=== PATIENT | male | born 1985 | race Caucasian/White ===

== ENCOUNTER → 2016-07-01 06:35 | Day surgery (SDC) | payer OTHER ==
--- NOTE | 2016-06-27 19:01 | HP ---
PREOPERATIVE HISTORY AND PHYSICAL: DATE OF OFFICE VISIT: 06/27/16 DATE OF SURGERY: 07/01/16 [facility] ATTENDING SURGEON: Malina Ram MD. PROCEDURE: Left knee arthroscopic anterior cruciate ligament reconstruction. CHIEF COMPLAINT: Left knee pain and instability. HISTORY OF PRESENT ILLNESS: Richard is a 30-year-old male who presents to the clinic for left knee pain and instability due to an ACL tear. The patient has failed conservative measures and therefore agreed to undergo a left knee arthroscopic anterior cruciate ligament reconstruction using a quad tendon autograft with Dr. Ram on 07/01/16. PAST MEDICAL HISTORY: None. PAST SURGICAL HISTORY: None. MEDICATIONS: None. ALLERGIES: No known drug allergies. FAMILY HISTORY: Mom with history of epilepsy. Denies family history of DVT or PE. SOCIAL HISTORY: Former smoker, few cigarettes a day for several years. Denies alcohol use or IV drug use. REVIEW OF SYSTEMS: A 14-point review of systems was reviewed with the patient and positive for intermittent GERD. The current left knee pain and instability. Otherwise, negative. The patient denies history of DVT or PE or bleeding disorder. PHYSICAL EXAMINATION GENERAL: A well-developed and well-nourished 30-year-old male, in no acute distress. VITAL SIGNS: Height 69, weight 169, pulse 64, blood pressure 98/60, respiratory rate 16, and BMI 25.0. HEENT: Normocephalic and atraumatic. PERRLA. Throat: Clear. NECK: Supple. PULMONARY: Lungs clear to auscultation bilaterally. No wheezing, rhonchi, or rales. CARDIOVASCULAR: Regular rate and rhythm. S1 and S2. No murmurs, gallops, and rubs. No edema. ABDOMEN: Positive bowel sounds. Soft or nontender. MUSCULOSKELETAL: Left knee trace effusion. Range of motion from 2 to 125 degrees. Stable to varus and valgus stress to a Luke. Nontender to the medial and lateral joint line. Calf is often nontender. Negative posterior drawer. +2 dorsalis pedis pulse. Sensation is intact to light touch distally. NEURO: Alert and oriented x3. Cranial nerves grossly intact. Sensation is intact to light touch distally. DIAGNOSTIC STUDIES/LAB DATA: MRI of the left knee revealed mild MCL sprain and grade III ACL rupture. IMPRESSION: Left knee ACL rupture. PLAN/RECOMMENDATIONS: The patient is scheduled to undergo a left knee arthroscopic anterior cruciate ligament reconstruction. This will be with quadriceps tendon autograft. He will return to the office in 10 to 14 days postoperative for followup and suture removal. Percocet was recommended for postoperative pain management. MANJEET LINO [id number]/[facility] #: [id number] TOMMY
[~2016-07-01 06:35] MED LIST: Buffered Lidocaine 1% SYR 3ML* 3 ML/SYR SYRINGE ONE; Bupivacaine 0.25% EPI 200,000* 30 ML SDV ONE; Bupivacaine 0.25% SDV* 30 ML ONE; Dexamethasone IV* 4 MG/ML 1 ML (4 MG) ONE; DiMENhydriNATE IV* 50 MG/ML VIAL IV PUSH PRN; Famotidine IV* 10 MG/ML 2 ML (20 mg) ONE; Glycopyrrolate IV* 0.2 MG/ML 1 ML VIAL ONE; HYDROmorphone INJ* 1 MG/ML CARPUJECT SYRINGE IV PRN; KETAMINE HCL* 50 MG/ML 10 ML VIAL ONE; Ketorolac INJ* 30 MG/ML 1 ML VIAL ONE; Lidocaine 2% PF * 5 ML VIAL ONE; Midazolam* 1 MG/ML 5 ML VIAL (5 MG) ONE; Ondansetron INJ* 2 MG/ML VIAL ONE; Propofol* 10 MG/ML 20 ML BTL IV PUSH ONE; ceFAZolin 2 GM PREMIX (*) 2 GM/50 ML BAG IVPB ONE; fentaNYL* 50 MCG/ML 2 ML VIAL (100 MCG VIAL) ONE; oxyCODONE/Acetamin 5/325 MG* TAB ONE; oxyCODONE/Acetamin 5/325 MG* TAB PO PRN
[2016-07-01 10:42] VITALS: BP 116/71
--- NOTE | 2016-07-02 00:12 | OP ---
DATE OF OPERATION: 07/01/16 - [facility] DATE OF : 81 SURGEON: Malina Ram MD SLITTING MACHINE FEEDER: MANJEET Dumont. An assistant unit forester was needed for the entirety of the case to help with positioning, retraction, and was utilized throughout all portions of the case. ANESTHESIOLOGIST: Dr. Ewing. ANESTHESIA: General. PRE-OP DIAGNOSIS: Left knee grade 3 anterior cruciate ligament rupture. POST-OP DIAGNOSIS: Left knee grade 3 anterior cruciate ligament rupture. OPERATIVE PROCEDURE: Left knee ACL reconstruction using quad tendon autograft, chondroplasty, and partial lateral meniscectomy. INDICATIONS: Richard is a 30-year-old incarcerated gentleman who, at the end of January, played football when he hyperextended his knee. He sustained immediate pain and difficulty weightbearing. He underwent MRI and physical therapy and was diagnosed with an ACL rupture. He is very active and he participates in [employer] races. He would like to have this taken care while he is incarcerated. We discussed the risks and benefits of surgery versus nonoperative treatment and he has elected to proceed with treatment. Operative risks include but are not limited to bleeding, infection, damage to nerves, vessels, surrounding structures, risks of anesthesia, DVT, stiffness, persistent pain, retear, risk of arthritis, need for further surgery. He has elected to proceed. After obtaining approval from his facility, he is allowed to proceed with surgery today. DESCRIPTION OF PROCEDURE: The patient was greeted in the preoperative area by the attending surgeon. Correct extremity was marked and the consent was confirmed. The patient was brought back to the operating suite where he was placed in the supine position on the operating table. He then underwent general anesthesia and LMA intubation, which he tolerated without difficulty after which the examination of the left knee was done. There was no effusion and the skin was intact. His range of motion was 0 to 130 degrees, stable to varus and valgus stress. There was 1+ pivot, which was just a glide rather, 2B Ion, negative posterior drawer. The lateral post was then placed. The 10- pound norris bag was placed to keep the knee positioned at 90 degrees. A tourniquet was planned to be placed sterilely. After a miniature surgical pause , the left knee was intra-articularly injected with 0.25% Marcaine with epinephrine. The left leg was then prepped and draped in the usual sterile fashion beginning with chlorhexidine soap and alcohol wipe and a final prep with ChloraPrep. A tourniquet was placed sterilely. After appropriate surgical pause indicating side, site, procedure and administration of antibiotics, the limb was exsanguinated, the tourniquet was inflated to 250 mmHg. An incision centered over the distal femur encompassing the center of the quad and the superior pole of the patella was then made sharply with a 10 blade. The soft tissues were carefully dissected to expose the paratenon, which was sharply incised. The tendon was quite broad measured 38 mm at its midsubstance, center 10 mm were harvested full thickness with the 10 blade, approximately 7 cm of soft tissue and then around 2 cm of bone block was planned for the harvest. The bone block was harvested using the sagittal saw and loosened with the osteotome. There was no complication in this portion. The graft was then removed after it was amputated and taken to the back table and prepared by the attending surgeon. The quad tendon was then reapproximated using 0 Vicryl sutures in interrupted fashion for a watertight seal. The graft was prepared on the back table for a size 10 x 23 mm femoral bone block and the soft tissue which was whip- stitched using #5 Ethibond. The graft was then left on the back table wrapped in sterile saline gauze lap. After the quad tendon had been reapproximated, the knee was placed in 90 degrees. The tourniquet was deflated. The lateral portal was made using the 11 blade. The scope was introduced into the joint and the joint was examined. There was abundant fat pad present. The medial portal was made to allow for anterior medial portal placement for the femoral tunnel. The shaver was used to remove the abundant fat pad. The notch was examined. The ACL had some fibers that were still intact, but 80% had been torn and scarred to the PCL and was nonfunctional. The ACL was then debrided using the biter, shaver, and the electrocautery device. At this point, the remainder of the joint was examined. The patellofemoral joint had grade 0 to 1 changes. There were small loose bodies that were evident but these were all less than 5 mm. The medial and lateral gutters were intact. There was a medial bruising pattern to the cartilage with some unstable flaps. The shaver was used to do a small chondroplasty of the medial femoral condyle. There were no full thickness lesions but there was a small area of grade 2 changes near that. The rest of the medial compartment was examined. The medial tibial plateau had grade 0 changes. The medial meniscus was intact. The knee was then placed in figure-of- four position. The lateral femoral condyle had grade 0 to 1 changes. The lateral tibial plateau had grade 0 to 1 changes, the lateral meniscus body was intact but the root had some partial tearing. This was then debrided back using the shaver blade to stable layer. The vast majority of the posterior root was intact; however, decision was made to just debride and not do a repair. After the femoral portion was cleared of all soft tissue with the electrocautery and the shaver, starting awl was then used to kenton the center of the footprint. This was then checked by changing the scope from the lateral to the medial portal and visualized and found to be appropriate. After this, the knee was left in 90 degrees of flexion and the tibial guide was set to 55 degrees to kenton the center of the tibial portion. A small incision centered in between the tibial tubercle and the posterior medial cortex of the tibial was then made. The soft tissue was carefully dissected and the electrocautery was used to expose the bone and elevator was also used to gently elevate soft tissues off the bone. With the guide tip to 55 degrees, the guide wire was then placed in the appropriate position in the center of the footprint. This was then overdrilled with a size 10 full-bore reamer. The bone was then captured for later placement in the patellar harvest site. The tunnel was then prepared using the shaver, the electrocautery, and the ball rasp. Once all the edges were smoothed out, attention was then directed to the femur. With the knee gently hyperflexed and the Laguna [employer] Nephew guide arm used , the Beath pin was then advanced through the center of the cortex out through the lateral cortex and through the skin. This was visualized again by changing the camera from the lateral to the medial portals. This was then overdrilled with a size 10 mm, low profile reamer to a depth of about 25 mm. All loose debris and bone were removed carefully, the tunnel was then notched, patella was visualized and found to be in good condition with no evidence of bridging of the tunnel. The #2 Ti-Cron was then passed through the eyelet of the Beath pin and advanced to the joint and then passed anterograde into the tibial tunnel. At this point the graft was then brought to the back table. Again, the knee was kept in hyperflexion this entire time and the graft was then passed through and well seated into the femoral tunnel. At this point, a nitinol wire was then used to place in the femoral tunnel and the size 8 x 25 mm SoftSilk screw was then used to secure the femoral bone block. This was done with excellent purchase. The images were obtained. The knee was taken to full extension and found to not impinge. The knee was then cycled 15 times and there was no evidence of loosening of the graft. Images were taken and the scope was replaced every time the knee was manipulated, after which the knee was then placed in about 20 degrees of flexion and the tibial tunnel was secured with a size 10x20 mm biocomposite screw with excellent purchase. The knee was then taken through range of motion and the scope placed back in to visualize the graft which had not shifted. Fluid and debris were then removed from the joint. A ion was assessed and found to be stable. The knee was then copiously irrigated with sterile saline. The bone graft was placed in the patellar defect, was oversewn with 0 Vicryl. The paratenon was closed with 2-0 Vicryl. The subcutaneous tissues were closed with 2-0 Vicryl at the quad and tibial wound and Monocryl was used to close tibial wound. Crossroads were used to close the quadriceps wound. The portal sites were closed with 3-0 nylon. Sterile dressings were applied, 30 cc of 0.25% Marcaine were placed in the tibial wound as well as the quadriceps wound and intra- articularly. Cryo/Cuff as well as a hinged IROM knee brace was then placed. The patient was awoken from anesthesia and was transferred to the PACU in stable condition. Tourniquet time was 29 minutes at 250 mmHg. POSTOPERATIVE PLAN: He is allowed to weight bear as tolerated. He will begin working on range of motion this week. He will be discharged back to his facility with postop antibiotics and pain medication. I will see him back in approximately 7 to 8 days for range of motion check. A DVT prophylaxis was considered, but deferred due to no previous personal or family history. [id number]/[facility] #: [id number] TOMMY
== END | disposition home or self-care (01) ==
LOC: OREAST 06:35
PROVIDERS: ATTEND Orthopaedic Surgery
DX: S83.512A Sprain of anterior cruciate ligament of left knee, initial encounter (principal); S83.282A Other tear of lateral meniscus, current injury, left knee, initial encounter; F17.200 Nicotine dependence, unspecified, uncomplicated; X50.9XXA Other and unspecified overexertion or strenuous movements or postures, initial encounter; J45.909 Unspecified asthma, uncomplicated; Y93.61 Activity, american tackle football; Y92.147 Courtyard of prison as the place of occurrence of the external cause
CPT/HCPCS: 88304; A9270-GY; C1713; J0690; J1100; J1885; J2250; J2405; J2704; J3010